=== PATIENT | female | born 1955 | race Caucasian/White ===

== ENCOUNTER 2018-07-30 09:10 | Emergency (ER) | payer OTHER ==
[2018-07-30 09:39] VITALS: TEMP 97.4
[2018-07-30] MEDS ORDERED: DiphenhydrAMINE 50 mg/ml Inj IVP STA (10:12)
[2018-07-30] MEDS ORDERED: Sodium Chloride 0.9% 1,000 ML IV ONE (10:14)
[2018-07-30] MEDS ORDERED: DiphenhydrAMINE 50 mg/ml Inj ONE (10:24)
[2018-07-30] MEDS ORDERED: Sodium Chloride 0.9% 1,000 ML ONE (10:24)
[2018-07-30 10:35] LABS: BASO # 0.1 K/uL (0.0-0.2); BASO % 0.7 % (0.0-2.0); EOS # 0.1 K/uL (0.0-0.7); HEMOGLOBIN 11.5 g/dL (11.0-16.0); LYMPH # 2.1 K/uL (1.0-4.3); MEAN CORPUSCULAR HGB CONC 31.2 g/dL (33.0-37.0); MEAN PLATELET VOLUME 8.9 fL (7.2-11.7); MONO # 0.8 K/uL (0.0-0.8); MONO % 8.2 % (0.0-10.0); NEUT # 6.9 K/uL (1.8-7.0); NEUT % 69.1 % (50.0-75.0); RBC 5.74 Mil/uL (3.80-5.20); RED CELL DISTRIBUTION WIDTH 15.3 % (11.5-14.5)
[2018-07-30 10:49] LABS: ALB/GLOB RATIO 1.2 (1.0-2.1); ALBUMIN 3.9 g/dL (3.5-5.0); ALT/SGPT 22 U/L (9-52); AST/SGOT 22 U/L (14-36); BLOOD UREA NITROGEN 10 mg/dL (7-17); CALCIUM 8.9 mg/dl (8.6-10.4); GFR NON-AFRICAN AMERICAN > 60
[2018-07-30 11:34] LABS: URINE BILIRUBIN NEGATIVE (NEGATIVE); URINE BLOOD NEGATIVE (NEGATIVE); URINE CLARITY Clear (Clear); URINE COLOR Straw (YELLOW); URINE GLUCOSE (UA) NORMAL (Normal); URINE LEUKOCYTE ESTERASE NEG Leu/uL (Negative); URINE PROTEIN NEGATIVE (NEGATIVE); URINE UROBILINOGEN NORMAL mg/dL (0.2-1.0)
--- NOTE | 2018-07-30 11:44 | RAD ---
Date of service: 07/30/2018 HISTORY: dizziness, weakness COMPARISON: No prior. FINDINGS: LUNGS: Small patchy opacity projects over lower left heart border. Non specific. Rule out pneumonia. Follow-up advised. No other abnormal opacity elsewhere. PLEURA: No significant pleural effusion identified, no pneumothorax apparent. CARDIOVASCULAR: Normal. OSSEOUS STRUCTURES: No significant abnormalities. VISUALIZED UPPER ABDOMEN: Normal. OTHER FINDINGS: None. IMPRESSION: Nonspecific small focal opacity at left lung base projecting over left heart border. Rule out pneumonia. Follow-up advised.
--- NOTE | 2018-07-30 11:46 | C.PDOC ---
History Of Present Illness 63-year-old female, is brought to the emergency department by niece with complaints of dizziness. Patient woke up this morning and developed sudden onset dizziness described as "room spinning" associated with one episode of non-blood y/non-bilious vomiting. Patient denies any chest pain, fever, shortness of breath or any other associated symptoms. No other complaints at this time. Time Seen by Provider: 07/30/18 09:18 Chief Complaint (Nursing): Dizziness/Lightheaded History Per: Patient History/Exam Limitations: no limitations Current Symptoms Are (Timing): Still Present Past Medical History Reviewed: Historical Data, Nursing Documentation, Vital Signs Vital Signs: Last Vital Signs Temp 97.4 F L 07/30/18 09:16 Pulse 77 07/30/18 11:07 Resp 20 07/30/18 11:07 BP 146/72 07/30/18 11:07 Pulse Ox 98 07/30/18 11:07 Family History: States: No Known Family Hx - Social History Hx Alcohol Use: No Hx Substance Use: No - Immunization History Hx Tetanus Toxoid Vaccination: No Hx Influenza Vaccination: No Hx Pneumococcal Vaccination: No Review Of Systems Constitutional: Negative for: Fever Cardiovascular: Negative for: Chest Pain, Palpitations, Edema Respiratory: Negative for: Shortness of Breath Gastrointestinal: Positive for: Nausea, Vomiting Skin: Negative for: Rash Neurological: Positive for: Dizziness. Negative for: Weakness, Numbness Physical Exam - Physical Exam Appears: Non-toxic, No Acute Distress Skin: Warm, Dry, No Rash Head: Atraumatic Eye(s): bilateral: Normal Inspection, PERRL, EOMI Ear(s): Bilateral: Normal Nose: Normal Oral Mucosa: Moist Lips: Normal Appearing Neck: Normal ROM, Supple Chest: Symmetrical Cardiovascular: Rhythm Regular, No Murmur Respiratory: Normal Breath Sounds, No Accessory Muscle Use Gastrointestinal/Abdominal: Soft, No Tenderness Extremity: Normal ROM, No Deformity Neurological/Psych: Oriented x3, Normal Speech, Other (no focal deficit) ED Course And Treatment - Laboratory Results Result Diagrams: 07/30/18 10:25 07/30/18 10:25 O2 Sat by Pulse Oximetry: 98 Pulse Ox Interpretation: Normal (RA) Medical Decision Making Medical Decision Making: Plan: * Bloodwork * EKG * Reglan, Benadryl, IVF * UA * Reassess and Disposition On re-exam, the patient reports improvement of symptoms. Lungs are CTA, heart is RRR, abdomen is soft, non-tender and tolerating PO well. Ambulatory in the ED with steady gait. Follow up with the medical doctor within 1-2 days. Return if worsened. Disposition - Disposition Referrals: Cayetano Medina MD [Medical Doctor] - Disposition: HOME/ ROUTINE Disposition Time: 13:14 Condition: STABLE Additional Instructions: Follow up with the medical doctor within 1-2 days. Return if worsened. Prescriptions: Meclizine HCl 25 mg PO TID PRN #25 tablet PRN Reason: Dizziness Instructions: Vertigo (a Type of Dizziness) Forms: [employer] (Kiswahili) - Clinical Impression Clinical Impression: Vertigo - Scribe Statement The provider has reviewed the documentation as recorded by the Scribe (Leon Franco) All medical record entries made by the Scribe were at my direction and personally dictated by me. I have reviewed the chart and agree that the record accurately reflects my personal performance of the history, physical exam, medical decision making, and the department course for this patient. I have also personally directed, reviewed, and agree with the discharge instructions and disposition.
[2018-07-30 13:28] VITALS: BP 121/64; PULSE 63; RESP 18; O2SAT 96
--- NOTE | 2018-07-31 16:44 | CARD ---
APPROVED REPORT Date of service: 07/30/2018 EKG Measurement Heart [id number] <Conclusion> Sinus bradycardia Otherwise normal ECG
== END 2018-07-30 13:35 | disposition home or self-care (01) ==
LOC: C.ER 09:10
DX: R42 Dizziness and giddiness (principal)
CPT/HCPCS: 71045; 80053; 81001; 82948; 85025; 87086; 93005; 96361; 96374; 96375; 99285; J1200; J2765; J7030